=== PATIENT | male | born 1980 | race Caucasian/White ===

== ENCOUNTER 2023-01-04 09:33 | Emergency (ER) | payer OTHER, SELFPAY ==
--- NOTE | ~2023-01-04 | XR_ITS ---
EXAMINATION: XR chest 2V DATE: 01/04/2023 10:31 INDICATION: Chest pain TECHNIQUE: frontal and lateral views of the chest were obtained. COMPARISON: None FINDINGS: The lungs are clear with no focal airspace opacities, pulmonary edema, pleural effusion or pneumothor ax. The cardiomediastinal silhouette is normal. Status post distal right clavicle resection. IMPRESSION: 1. No acute cardiopulmonary disease. Reviewed, dictated and finalized at location A.
--- NOTE | 2023-01-04 09:41 | ECG_ITS ---
Measurements Intervals [place] Rate: 105 P: 15 [place]: 147 QRS: 41 QRSD: 89 T: 37 QT: 342 QTc: 453 Interpretive Statements SINUS TACHYCARDIA POSSIBLE LEFT ATRIAL ENLARGEMENT DELAYED PRECORDIAL R/S TRANSITION BASELINE ARTIFACT- III, AVL BORDERLINE ECG NO PREVIOUS ECG AVAILABLE FOR COMPARISON Electronically Signed On 01-04-2023 9:53:27 CDT by [place] Soto D.O.
[2023-01-04 09:42] VITALS: BP 138/100; PULSE 105; RESP 16; TEMP 36.7; O2SAT 100
[2023-01-04 09:57] LABS: Basophils Absolute Auto 0.1 K/mm3 (0.0-0.1); Basophils Percent Auto 0.5 % (0.2-1.2); Eosinophils Absolute Auto 0.1 K/mm3 (0-0.3); Eosinophils Percent Auto 0.6 % (0-4.4); Hematocrit 49.4 % (42.0-52.0); Hemoglobin 17.6 g/dL (14.0-18.0); Immature Granulocyte Absolute 0.01 K/mm3 (0.00-0.031); Immature Granulocyte Percent A 0.1 % (0-0.5); Lymphocytes Absolute Auto 2.68 K/mm3 (0.9-3.2); Lymphocytes Percent Auto 28.1 % (18.3-44.2); Mean Corpuscular HGB Conc 35.6 g/dl (32-36); Mean Corpuscular Hemoglobin 30.9 pg (26-34); Mean Corpuscular Volume 86.7 fl (80-100); Mean Platelet Volume 8.7 fl (7.4-10.4); Monocytes Absolute Auto 0.5 K/mm3 (0.1-0.6); Neutrophils Absolute Auto 6.3 K/mm3 (1.3-6.7); Neutrophils Percent Auto 65.7 % (45.5-73.1); Platelet Count Result 294 k/mm3 (150-375); Red Cell Distribution Width 12.5 % (11.5-14.5); White Blood Count 9.5 K/mm3 (4.5-10.0)
[2023-01-04 10:02] LABS: INR 0.9; Prothrombin Time 12.4 Seconds (11.1-14.7)
[2023-01-04 10:03] LABS: Partial Thromboplastin Time 26.9 SECONDS (22.3-36.8)
[2023-01-04 10:10] LABS: Alanine Aminotransferase 44 U/L (6-50); Albumin Level 5.3 g/dL (3.5-5.1); Alkaline Phosphatase 88 U/L (38-126); Anion Gap 32 mmol/L (8-16); Aspartate Amino Transferase 50 U/L (17-59); Bilirubin,Total 1.1 mg/dL (0.2-1.3); Blood Urea Nitrogen 14 mg/dL (9-20); Calcium 8.9 mg/dL (8.4-10.2); Carbon Dioxide 7 mmol/L (22-30); Chloride 101 mmol/L (98-107); Estimated Glomerular Filt Rate > 60; Glucose 74 mg/dL (65-110); Lipase 67 U/L (23-300); Potassium 4.3 mmol/L (3.4-5.0); Sodium 140 mmol/L (137-145)
[2023-01-04 10:22] LABS: Troponin I < 0.012 ng/mL (0.000-0.034)
[2023-01-04 10:50] LABS: Ethanol 249 mg/dL (<10)
--- NOTE | 2023-01-04 11:11 | PC.NURSE ---
report received from Mery RODRIGUEZ at this time
[2023-01-04] MEDS: Please add drug allergy info to patient profile. XX (11:12)
--- NOTE | 2023-01-04 11:14 | ED.ARRPALP ---
HPI - Arrhythmia/Palpitations General Chief Complaint: Arrhythmia/Palpitations <Dheeraj Schmitz PA-C - Last Filed: 01/04/23 18:09> Stated Complaint: palp/left arm pain <NESSA Ashley Last Filed: 01/04/23 18:09> Time Seen by Provider: 01/04/23 10:31 <NESSA Ashley Last Filed: 01/04/23 18:09> Source: patient <NESSA Ashley Last Filed: 01/04/23 18:09> Mode of arrival: ambulatory <NESSA Ashley Last Filed: 01/04/23 18:09> Limitations: no limitations <NESSA Ashley Last Filed: 01/04/23 18:09> History of Present Illness HPI narrative: This is a 42-year-old male who presents the ED with chief complaint of anxiety and palpitations beginning this morning. Patient states that he has been drinking a lot of alcohol and this morning he started to feel right-sided chest pain along with left arm numbness and tingling. States the chest pain does not radiate. States his last drink was last night/this AM. Reports multiple episodes of emesis. He states he tried marijuana Gummies to help with sleeping and feels that this may be contributing to the anxiety and vomiting. He states that he may have taken too many. Denies any other known triggers for anxiety but feels that the anxiety is causing his symptoms. States that he has been hospitalized in the past for alcohol withdrawals. Denies abdominal pain, diarrhea, bloody emesis, headache, diaphoresis. Denies SI or HI. <NESSA Ashley Last Filed: 01/04/23 18:09> Related Data Allergies/Adverse Reactions: Allergies Allergy/AdvReac Type Severity Reaction Status Date / Time No Known Allergies Allergy Verified 01/04/23 10:33 <NESSA Ashley Last Filed: 01/04/23 18:09> Review of Systems Review of Systems: CONSTITUTIONAL: Denies fever, chills, or sweats. EYES: Denies visual changes, redness, or discharge. ENT: Denies rhinorrhea, congestion, sore throat, or otalgia. CARDIOVASCULAR: See HPI RESPIRATORY: Denies cough or dyspnea. GASTROINTESTINAL: Denies abdominal pain, nausea, vomiting, or diarrhea. GENITOURINARY: Denies dysuria or hematuria. SKIN: Denies rash or itching. MUSCULOSKELETAL: Denies back pain, joint pain, or myalgia. NEUROLOGIC: Denies headache, numbness, dizziness, or weakness. PSYCHIATRIC: See HPI <Dheeraj Schmitz PA-C - Last Filed: 01/04/23 18:09> Exam Narrative: GENERAL: Well-appearing, well-nourished. Does appear anxious. He is not clinically intoxicated. HEAD: Normocephalic, atraumatic. EYES: PERRLA and EOMI. ENT: Nares clear, no rhinorrhea or epistaxis. Mucous membranes moist. Oropharynx without tonsillar hypertrophy exudate or other lesions. NECK: Supple. No adenopathy or masses. CHEST: No respiratory distress. Clear to auscultation. No wheezes rales or rhonchi HEART: Regular rate and rhythm. No murmur heard. Normal peripheral pulses. ABDOMEN: Soft, nontender, nondistended, normal active bowel sounds. EXTREMITIES: Normal range of motion. No edema. SKIN: Warm, dry, no rash. NEURO: Alert and oriented x3. No focal deficits. PSYCH: Anxious mood. Appropriate affect. Rapid speech, avoids eye contact. <Dheeraj Schmitz PA-C - Last Filed: 01/04/23 18:09> Course Course Emergency Course: Reevaluation 1305: Feeling much improved. Anxiety symptoms have resolved. Chest pain is resolved. <Dheeraj Schmitz PA-C - Last Filed: 01/04/23 18:09> [employer]ERE[employer] EQUIPMENT SALESPERSON/PA Physician Supervision For this patient encounter, I reviewed the STEREO EQUIPMENT SALESPERSON or PA documentation, treatment plan, and I was responsible for the medical decision making; and I had [id number] time with this patient. Patient has been drinking approximately a handle of alcohol daily. Patient states he feels improved and is requesting discharge to home. Patient is is not clinically intoxicated. Patient is going home to [facility] and will seek medical follow-up there. <Xavier Cash MD - Last Filed: 01/04/23 18:26> Vital Signs Vital
[2023-01-04] MEDS: SODIUM CHLORIDE 0.9% IV 1,000 ML 999 ML IV CONT ×2 (11:49→12:38)
[2023-01-04] MEDS: ONDANSETRON INJ 4 MG/2 ML VIAL IV PUSH ×2 (11:49→14:38)
[2023-01-04] MEDS: LORazepam INJ (*CRX) 2 MG/ML VIAL 0.5 MG IV PUSH (11:49)
[2023-01-04 13:05] LABS: Troponin I < 0.012 ng/mL (0.000-0.034)
[2023-01-04] MEDS: THIAMINE 500 MG/NS 100 ML 500 MG/100 ML BAG 200 MG IVPB (14:27)
== END 2023-01-04 15:22 | disposition home or self-care (01) ==
PROVIDERS: Emergency Medicine; Emergency Provider Physician Assistant
DX: R00.2 Palpitations (principal); F41.9 Anxiety disorder, unspecified; R00.0 Tachycardia, unspecified; R94.31 Abnormal electrocardiogram [ECG] [EKG]
CPT/HCPCS: 36415; 71046; 80053; 80307; 83690; 84484; 85025; 85610; 85730; 93005; 96361; 96365; 96375; 96376; 99284; J2060; J2405; J3411; J7030